=== PATIENT | female | born 1990 | race Caucasian/White ===

== ENCOUNTER 2017-01-06 08:42 | Emergency (ER) | payer OTHER ==
[~2017-01-06] VITALS: Ht 160 cm; Wt 72.6 kg
[~2017-01-06 08:42] MED LIST: ACHYD1T PO; DCS100C PO; DOCU100C37 PO; HYDR12.56 PO; HYDR1TAB PO; IBP800T PO; IBUP-1780 PO; OXYC-465 PO; PREN-115 PO
--- OUTSIDE RECORDS SUMMARY | 2017-01-06 08:48 | XMS REPORT | Continuity of Care Document ---
Author Author [facility] Organization [facility] Address Unknown Phone Unavailable Care Team Providers Care Bed Laster Name Role Phone AMY RAMIREZ MD PCP Insurance Providers Payer Name Policy Number Subscriber Name Relationship [employer] [id number] Lidia Del Angel 19 Mother Advance Directives Directive Response Recorded Date/Time Advance Directives No 12/13/14 1:35am Health Care Power of Mental Health Consultant No 12/13/14 1:35am Organ Donor Yes 12/13/14 1:35am Resuscitation Status Full Code 12/13/14 1:35am Problems Medical Problems Problem Onset Date Status Constipation in in first trimester Unknown Active Medications Medication Dose Route Sig Days/Qty Instructions Order Date Discontinued Date Status Acetaminophen/Hydrocodone Bitart 1 - 2 Each PO Q4HR PRN 20 Qty 12/02/12 Discontinued Hydrochlorothiazide 1 Each PO DAILY 12/02/12 06/05/14 Discontinued Vit #108/Iron/Fa 1 Each PO 12/02/12 Active Social History Social History Problem Response Recorded Date/Time Alcohol Use Denies Use 06/05/2014 7:22am Recreational Drug Use No 06/05/2014 7:22am Recent Foreign Travel No 12/13/2014 1:37am Smoking Status Never a Smoker 12/13/2014 1:36am Do you dip or chew tobacco? No 12/13/2014 1:36am Query Response Start Date Stop Date Smoking Status Never a Smoker Hospital Discharge Instructions No hospital discharge instructions. Plan of Care No plan of care. Functional Status No functional status results. Allergies, Adverse Reactions, Alerts Allergen Type Severity Reaction Status Last Updated No Known Drug Allergies Active 12/02/12 Immunizations Name Given Type Date of Influenza Vaccine 07/26/14 Historical Vital Signs Acute Vital Signs Vital Response Date/Time Temperature (Fahrenheit) 98.2 degrees F (97.6 - 99.5) Temperature (Calculated Celsius) 36.27437 degrees C (36.4 - 37.5) Temperature Source Tympanic Pulse Rate (adult) 74 bpm (60 - 90) Respiratory Rate 18 bpm (12 - 24) Blood Pressure 132/79 mm Hg Height (Feet) 5 feet Height (Inches) 3.00 inches Height (Calculated Centimeters) 160.140281 cm Weight (Pounds) 183 pounds Weight (Calculated Grams) 60588.405 gm Weight (Calculated Kilograms) 83.962428 kilograms Calculated BMI 32.41 Results Laboratory Results Test Name Result Units Flags Reference Collection Date/Time Result Date/ Time Comments Urine Protein < 6 MG/DL L 6-12 12/07/2014 12:37pm 12/07/2014 1:00pm Urine Creatinine 95 MG/DL 30-125 12/07/2014 12:37pm 12/07/2014 1:00pm Procedures No known history of procedures. Encounters Encounter Location Date/Time Departed Clinic Via [facility] 12/13/14 1:23am Registered Clinic Via [facility] 12/07/14 12:37pm
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
[2017-01-06] MEDS ORDERED: HYDR-3731 PO (10:14)
[2017-01-06 10:28] VITALS: BP 105/71
[2017-01-06] MEDS ORDERED: HYDROcodone/APAP 10 MG/325 MG (LORTAB) TAB PO ONE (10:30)
== END 2017-01-06 10:28 | disposition home or self-care (01) ==
LOC: EDUNIT# 08:42 → ER 08:44
DX: S32.511A Fracture of superior rim of right pubis, initial encounter for closed fracture (principal); Y04.8XXA Assault by other bodily force, initial encounter; Y99.8 Other external cause status
CPT/HCPCS: 73502; 73552; 99283

== ENCOUNTER 2020-06-15 05:35 | Outpatient (RCR) | payer OTHER ==
[~2020-06-15] VITALS: Ht 160 cm; Wt 80.5 kg
[~2020-06-15 05:35] MED LIST changes: +HYDR-3731 PO
== END 2020-06-15 08:37 | disposition home or self-care (01) ==
LOC: PREOP 05:35
PROVIDERS: ATTEND Obstetrics & Gynecology
DX: Z01.818 Encounter for other preprocedural examination (principal); Z20.828 Contact with and (suspected) exposure to other viral communicable diseases
CPT/HCPCS: 87635

== ENCOUNTER 2020-06-17 03:46 | Inpatient (IN) | payer BC, OTHER ==
[~2020-06-17] VITALS: Ht 160 cm; Wt 81.3 kg
[2020-06-17] VITALS (13 sets, daily range): BP systolic 89–126; BP diastolic 56–90
[2020-06-17] MEDS ORDERED: METOCLOPRAMIDE INJ 10 MG/2 ML (REGLAN) ONE (05:22)
[2020-06-17] MEDS ORDERED: CITRIC ACID/SOB CIT (BICITRA) 30 ML UDC ONE (05:23)
[2020-06-17] MEDS ORDERED: FAMOTIDINE 20MG/2ML IV (PEPCID) ONE (05:23)
[2020-06-17] MEDS ORDERED: ceFAZolin 2 GM IV Premixed 50 ML ONE (05:23)
[2020-06-17] MEDS ORDERED: metroNIDAZOLE 500MG/100ML IVPB 100 ML ONE (05:23)
[2020-06-17] MEDS ORDERED: LACTATED RINGERS 1,000 ML IV ONE (05:28)
--- NOTE | 2020-06-17 06:10 | NUR ---
JOSE JUAN BRONSON presented to unit via from ED, accompanied by SO, for Section. JOSE JUAN BRONSON weighed, gowned, voided, and to bed. EFHM and TOCO applied, VS taken. JOSE JUAN BRONSON oriented to bed controls, call light, TV, heat, and A/C controls.
--- OUTSIDE RECORDS SUMMARY | 2020-06-17 06:11 | XMS REPORT ---
Author Author Edilma Lane Doctor Organization [facility] Address Unknown Phone Unavailable Care Team Providers Care Hotel Dining Room Cashier Name Role Phone Migration, Doctor Unavailable Unavailable PROBLEMS Type Condition ICD9-CM Code CVI18-YK Code Onset Dates Condition S tatus SNOMED Code Problem Procreative counseling and advice using natural family planning V26.41 Active 618947625 Problem Routine general medical examination at [facility] V70.0 Active 497397650 Problem Palpitations 785.1 Active 6317703 2 Problem Unspecified tinnitus 388.30 Active 05422752 Problem Unspecified breast screening V76.10 A ctive 265317256 Problem Strep sore throat J02.0 Active 43 902636 Problem Screening for malignant neoplasm of the cervix V76.2 Active 399972757 Problem Threatened , unspecified as to episode of care 640 .00 Active 87924840 Problem Unspecified spontaneous without mention of complication 634.90 Active 42278105 Problem Acute sinusitis, unspecified 461.9 A ctive 84531918 Problem Essential hypertension, benign 401.1 Active 5064029 ALLERGIES No Information ENCOUNTERS Encounter Location Date Diagnosis [facility] [address] [facility] [id number] [address] [place] [id number] Dec, Viral URI J06.9 ; Cough R05 and Fever R50.9 [facility] [address] [facility] [id number] [address] [place] [address] Oct, Strep sore throat J02.0 [facility] [address] [facility] [id number] [address] [place] [address] Feb, [facility] [address] [facility] [id number] [address] [place] [address] Feb, [facility] [address] [facility] [id number] [address] [place] [phone] Dec, [facility] [address] [id number] [address] [place] [address], [place] [address] 05 Dec, 2013 [facility] [address] [id number] [address] [place] [address], [place] [address] 16 Nov, 2013 [facility] [address] [id number] [address] [place] [address], [place] [address] 13 Nov, 2013 [facility] [address] [id number] [address] [place] [address], [place] [address] Nov, [facility] [address] [id number] [address] [place] [address], [place] [address] Jun, [facility] [address] [id number] [address] [place] [address], [place] [address] 09 Dec, 2012 [facility] [address] [id number] [address] [place] [address], [place] [address] Nov, [facility] [address] [id number] [address] [place] [address], [place] [address] 18 Nov, 2012 [facility] [address] [id number] [address] [place] [address], [place] [address] 16 Nov, 2012 [facility] [address] [id number] [address] [place] [address], [place] [address] 14 Nov, 2012 [facility] [address] [id number] [address] [place] [address], [place] [address] Nov, [facility] [address] [id number] [address] [place] [address], [place] [address] Nov, [facility] [address] [id number] [address] [place] [address], [place] [address] Sep, [facility] [address] [id number] [address] [place] [address], [place] [address] Sep, [facility] [address] [id number] [address] [place] [address], [place] [address] Aug, [facility] [address] [id number] [address] [place] [address], [place] [address] Aug, [facility] [address] [id number] [address] [place] [phone] May, [facility] [address] [facility] [id number] [address] [place] [phone] May, [facility] [address] [id number] [address] [place] [address] Feb, [facility] [address] [facility] [id number] [address] [place] [phone] Feb, [facility] [address] [facility] [id number] [address] [place] [address] Feb, [facility] [address] [facility] [id number] [address] [place] [address] Jan, [facility] [address] [facility] [id number] [address] [place] [address] Dec, IMMUNIZATIONS No Known Immunizations SOCIAL HISTORY Never Assessed REASON FOR VISIT EMR-[facility] [place]AN OF CARE VITAL SIGNS MEDICATIONS Unknown Medications RESULTS No Results PROCEDURES No Known procedures INSTRUCTIONS MEDICATIONS ADMINISTERED No Known Medications MEDICAL (GENERAL) HISTORY Type Description Date Surgical History Section 11/2014 Hospitalization History Post C- Section 11/2014
--- OUTSIDE RECORDS SUMMARY | 2020-06-17 06:11 | XMS REPORT ---
Author Author Edilma MEJIA Organization [employer] Address Unknown Phone Unavailable Care Team Providers Care Loan Manager Name Role Phone VINAY MEJIA CP Unavailable Allergies, Adverse Reactions, Alerts Substance Reaction Event Type N.K.D.A. Info Not Available Non Drug Allergy Problems Problem Type Condition Code Onset Dates Condition Statu s Problem Palpitations 785.1 Active Problem Unspecified tinnitus 388.30 Active Problem Essential hypertension, benign 401.1 Active Assessment Strep sore throat J02.0 Active Problem Routine general medical examination at [facility] V70.0 Active Problem Acute sinusitis, unspecified 461.9 Active Problem Unspecified spontaneous without mention of complication 634.90 Active Problem Strep sore throat J02.0 Active Problem Screening for malignant neoplasm of the cervix V76.2 Active Problem Unspecified breast screening V76.10 Active Problem Threatened , unspecified as to episode of care 640.00 Active Problem Procreative counseling and advice using natural family planning V26.41 Active Medications No Known Medications Procedures Procedure Coding System Code Date BICILLIN LA/PENICILLIN G BENZATHINE CPT-4 J0561 Oct 26, 2015 THER/PROPH/DIAG INJ, SC/IM CPT-4 52520 Oct STREP A ASSAY W/OPTIC CPT-4 16825 Oct 26 15 Office Visit, Est Pt., Level 3 CPT-4 79561 D 2014 Vital Signs Date/Time: Oct 26, 2015 Temperature 98.4 F Weight 177.3 lbs Height 63 in BMI 31.40 Index Blood Pressure Diastolic 86 mmHg Blood Pressure Systolic 140 mmHg Cardiac Monitoring Heart Rate 100 bpm Results No Known Results Summary Purpose [employer] Submission
--- OUTSIDE RECORDS SUMMARY | 2020-06-17 06:11 | XMS REPORT ---
Author Author Edilma Gray Organization [facility] Address [address] [place] [address] Care Team Providers Care Crewman Main Battle Tank Name Role Phone BRAYAN Gray Unavailable PROBLEMS Type Condition ICD9-CM Code XON83-JN Code Onset Dates Condition S tatus SNOMED Code Problem Procreative counseling and advice using natural family planning V26.41 Active 972197139 Problem Routine general medical examination at [facility] V70.0 Active 575657583 Problem Palpitations 785.1 Active 4704211 2 Problem Unspecified tinnitus 388.30 Active 66064822 Problem Unspecified breast screening V76.10 A ctive 308306934 Problem Strep sore throat J02.0 Active 43 947231 Problem Screening for malignant neoplasm of the cervix V76.2 Active 134126958 Problem Threatened , unspecified as to episode of care 640 .00 Active 09540457 Problem Unspecified spontaneous without mention of complication 634.90 Active 71313436 Problem Acute sinusitis, unspecified 461.9 A ctive 53974032 Problem Essential hypertension, benign 401.1 Active 9260585 ALLERGIES No Information ENCOUNTERS Encounter Location Date Diagnosis [facility] [id number] [place] [address] Oct, Encounter for supervision of other alexandra l in first trimester Z34.81 [facility] [address] [id number] [place] [address] Oct, Encounter for supervision of other alexandra l in first trimester Z34.81 [facility] [address] [facility] [id number] [address] [place] [address] Dec, Viral URI J06.9 ; Cough R05 and Fever R50.9 [facility] [id number] [place] [address] Oct, Strep sore throat J02.0 [facility] [address] [id number] [place] [address] Feb, [facility] [address] [id number] [place] [address] Feb, [facility] [address] [id number] [place] [address] Dec, [facility] [address] [id number] [place] [address] Dec, [facility] [address] [id number] [place] [address] Nov, [facility] [address] [id number] [place] [address] Nov, [facility] [address] [id number] [place] [address] Nov, [facility] [address] [id number] [place] [address] Jun, [facility] [address] [id number] [place] [address] Dec, [facility] [address] [id number] [place] [address] Nov, [facility] [address] [id number] [place] [address] Nov, [facility] [id number] [place] [address] Nov, [facility] [address] [id number] [place] [address] 14 Nov, 2012 [facility] [id number] [place] [address] Nov, [facility] [address] [id number] [place] [address] Nov, [facility] [id number] [place] [address] Sep, [facility] [address] [id number] [place] [address] Sep, [facility] [address] [id number] [place] [address] Aug, [facility] [address] [id number] [place] [address] Aug, [facility] [address] [id number] [place] [address] May, [facility] [id number] [place] [address] May, [facility] [id number] [place] [address] Feb, [facility] [address] [id number] [place] [address] Feb, [facility] [address] [id number] [place] [address] Feb, [facility] [address] [id number] [place] [address] Jan, [facility] [address] [id number] [place] [address] Dec, IMMUNIZATIONS No Known Immunizations SOCIAL HISTORY Never Assessed REASON FOR VISIT PLAN OF CARE VITAL SIGNS Height 63 in 2013-12-07 Weight 162 lbs 2013-12-07 Temperature 96.4 degrees Fahrenheit 2013-12-07 Heart Rate 80 bpm 2013-12-07 Respiratory Rate 16 2013-12-07 Blood pressure systolic 120 mmHg 2013-12-07 Blood pressure diastolic 80 mmHg 2013-12-07 MEDICATIONS Unknown Medications RESULTS No Results PROCEDURES Procedure Date Ordered Result Body Site SCR PAP SMER;NEW PT OBTAIN PREP&CONVY-LAB Dec 07, 2013 CYTOPATH C/V AUTO FLUID REDO Dec 07, 2013 INSTRUCTIONS MEDICATIONS ADMINISTERED No Known Medications MEDICAL (GENERAL) HISTORY Type Description Date Surgical History Section 11/2014 Hospitalization History Post C- Section 11/2014
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
--- OUTSIDE RECORDS SUMMARY | 2020-06-17 06:11 | XMS REPORT ---
Author Author Edilma Gray Organization [facility] Address [address] [place] [address] Care Team Providers Care Fiscal Analyst Name Role Phone BRAYAN Gray Unavailable PROBLEMS Type Condition ICD9-CM Code FMD36-ME Code Onset Dates Condition S tatus SNOMED Code Problem Procreative counseling and advice using natural family planning V26.41 Active 807568121 Problem Routine general medical examination at [facility] V70.0 Active 765829984 Problem Palpitations 785.1 Active 7802591 2 Problem Unspecified tinnitus 388.30 Active 45990285 Problem Unspecified breast screening V76.10 A ctive 326440421 Problem Strep sore throat J02.0 Active 43 340697 Problem Screening for malignant neoplasm of the cervix V76.2 Active 943342177 Problem Threatened , unspecified as to episode of care 640 .00 Active 07190663 Problem Unspecified spontaneous without mention of complication 634.90 Active 52528950 Problem Acute sinusitis, unspecified 461.9 A ctive 59192979 Problem Essential hypertension, benign 401.1 Active 5308778 ALLERGIES No Information ENCOUNTERS Encounter Location Date Diagnosis [facility] [address] [facility] [id number] [address] [place] [phone] Oct, Encounter for supervision of other normal in first trimester Z34.81 [facility] [address] [facility] [id number] [address] [place] [phone] Oct, Encounter for supervision of other normal in first trimester Z34.81 [facility] [address] [facility] [id number] [address] [place] [phone] Dec, Viral URI J06.9 ; Cough R05 and Fever R50.9 [facility] [address] [facility] [id number] [address] [place] [phone] Oct, Strep sore throat J02.0 [facility] [address] [id number] [address] [place] [address], [place] [phone] Feb, [facility] [address] [id number] [address] [place] [phone] Feb, [facility] [address] [id number] [address] [place] [address], [place] [phone] Dec, [facility] [address] [id number] [address] [place] [phone] Dec, [facility] [address] [id number] [address] [place] [address], [place] [phone] Nov, [facility] [address] [id number] [address] [place] [address], [place] [phone] Nov, [facility] [address] [id number] [address] [place] [phone] Nov, [facility] [address] [id number] [address] [place] [address], [place] [address] Jun, [facility] [address] [id number] [address] [place] [address], [place] [phone] Dec, [facility] [address] [id number] [address] [place] [address], [place] [address] Nov, [facility] [address] [id number] [address] [place] [phone] Nov, [facility] [address] [id number] [address] [place] [phone] Nov, [facility] [address] [id number] [address] [place] [phone] Nov, [facility] [address] [id number] [address] [place] [phone] Nov, [facility] [address] [id number] [address] [place] [phone] Nov, [facility] [address] [id number] [address] [place] [phone] Sep, [facility] [address] [id number] [address] [place] [phone] Sep, [facility] [address] [id number] [address] [place] [phone] Aug, [facility] [address] [id number] [address] [place] [phone] Aug, [facility] [address] [id number] [address] [place] [phone] May, [facility] [address] [id number] [address] [place] [phone] May, [facility] [address] [id number] [address] [place] [phone] Feb, [facility] [address] [id number] [address] [place] [phone] Feb, [facility] [address] [id number] [address] [place] [phone] Feb, [facility] [address] [id number] [address] [place] [phone] Jan, [facility] [address] [id number] [address] [place] [phone] Dec, IMMUNIZATIONS No Known Immunizations SOCIAL HISTORY Never Assessed REASON FOR VISIT PLAN OF CARE VITAL SIGNS MEDICATIONS Unknown Medications RESULTS No Results PROCEDURES No Known procedures INSTRUCTIONS MEDICATIONS ADMINISTERED No Known Medications MEDICAL (GENERAL) HISTORY Type Description Date Surgical History Section 11/2014 Hospitalization History Post C- Section 11/2014
--- OUTSIDE RECORDS SUMMARY | 2020-06-17 06:11 | XMS REPORT ---
Author Author Edilma Lane Doctor Organization [facility] Address Unknown Phone Unavailable Care Team Providers Care Facer Operator Name Role Phone Migration, Doctor Unavailable Unavailable PROBLEMS Type Condition ICD9-CM Code SHO33-CO Code Onset Dates Condition S tatus SNOMED Code Problem Procreative counseling and advice using natural family planning V26.41 Active 188121746 Problem Routine general medical examination at [facility] V70.0 Active 850203497 Problem Palpitations 785.1 Active 8975109 2 Problem Unspecified tinnitus 388.30 Active 75550360 Problem Unspecified breast screening V76.10 A ctive 781652756 Problem Strep sore throat J02.0 Active 43 864539 Problem Screening for malignant neoplasm of the cervix V76.2 Active 895670075 Problem Threatened , unspecified as to episode of care 640 .00 Active 35156432 Problem Unspecified spontaneous without mention of complication 634.90 Active 51683549 Problem Acute sinusitis, unspecified 461.9 A ctive 13890877 Problem Essential hypertension, benign 401.1 Active 6792612 ALLERGIES No Information ENCOUNTERS Encounter Location Date Diagnosis [facility] [address] [facility] [id number] [address] [place] [address] Dec, Viral URI J06.9 ; Cough R05 and Fever R50.9 [facility] [address] [facility] [id number] [address] [place] [address] Oct, Strep sore throat J02.0 [facility] [address] [facility] [id number] [address] [place] [address] Feb, [facility] [address] [facility] [id number] [address] [place] [address] Feb, [facility] [address] [facility] [id number] [address] [place] [address] Dec, [facility] [address] [id number] [address] [place] [address], [place] [address] 05 Dec, 2013 [facility] [address] [id number] [address] [place] [address], [place] [address] 16 Nov, 2013 [facility] [address] [id number] [address] [place] [address], [place] [address] 13 Nov, 2013 [facility] [address] [id number] [address] [place] [address], [place] [address] Nov, [facility] [address] [id number] [address] [place] [address], [place] [address] Jun, [facility] [address] [id number] [address] [place] [address], [place] [address] 09 Dec, 2012 [facility] [address] [id number] [address] [place] [address], [place] [address] Nov, [facility] [address] [id number] [address] [place] [address], [place] [address] 18 Nov, 2012 [facility] [address] [id number] [address] [place] [address], [place] [address] 16 Nov, 2012 [facility] [address] [id number] [address] [place] [address], [place] [address] 14 Nov, 2012 [facility] [address] [id number] [address] [place] [address], [place] [address] Nov, [facility] [address] [id number] [address] [place] [address], [place] [address] Nov, [facility] [address] [id number] [address] [place] [address], [place] [address] Sep, [facility] [address] [id number] [address] [place] [address], [place] [address] Sep, [facility] [address] [id number] [address] [place] [address], [place] [address] Aug, [facility] [address] [id number] [address] [place] [address], [place] [address] Aug, [facility] [address] [id number] [address] [place] [address] May, [facility] [address] [id number] [address] [place] [address] May, [facility] [address] [id number] [address] [place] [address] Feb, [facility] [address] [id number] [address] [place] [address] Feb, [facility] [address] [id number] [address] [place] [address] Feb, [facility] [address] [id number] [address] [place] [address] Jan, [facility] [address] [facility] [id number] [address] [place] [address] Dec, IMMUNIZATIONS No Known Immunizations SOCIAL HISTORY Never Assessed REASON FOR VISIT [facility] PLAN OF CARE VITAL SIGNS MEDICATIONS Medication Instructions Dosage Frequency Start Date End Date Duration S tatus MethylPREDNISolone 4 mg by Oral route ev jordyn day for 6 days as directed per dose pack Jun, Active Augmentin 875-125 mg 1 tablet by Oral route 2 times pe r day for 10 day(s) Jun, Active RESULTS No Results PROCEDURES No Known procedures INSTRUCTIONS MEDICATIONS ADMINISTERED No Known Medications MEDICAL (GENERAL) HISTORY Type Description Date Surgical History Section 11/2014 Hospitalization History Post C- Section 11/2014
--- OUTSIDE RECORDS SUMMARY | 2020-06-17 06:11 | XMS REPORT ---
Author Author Edilma Lane Doctor Organization [facility] Address Unknown Phone Unavailable Care Team Providers Care Chief Cook Name Role Phone Migration, Doctor Unavailable Unavailable PROBLEMS Type Condition ICD9-CM Code RJM26-DO Code Onset Dates Condition S tatus SNOMED Code Problem Procreative counseling and advice using natural family planning V26.41 Active 676245061 Problem Routine general medical examination at [facility] V70.0 Active 281464192 Problem Palpitations 785.1 Active 7875048 2 Problem Unspecified tinnitus 388.30 Active 27713847 Problem Unspecified breast screening V76.10 A ctive 125784941 Problem Strep sore throat J02.0 Active 43 459238 Problem Screening for malignant neoplasm of the cervix V76.2 Active 263611827 Problem Threatened , unspecified as to episode of care 640 .00 Active 23853657 Problem Unspecified spontaneous without mention of complication 634.90 Active 89134532 Problem Acute sinusitis, unspecified 461.9 A ctive 50074196 Problem Essential hypertension, benign 401.1 Active 5238069 ALLERGIES No Information ENCOUNTERS Encounter Location Date Diagnosis [facility] [address] [place] [address] Oct, Encounter for supervision of other normal in first trimester Z34.81 [facility] [address] [id number] [address] [place] [address] Oct, Encounter for supervision of other normal in first trimester Z34.81 [facility] [address] [id number] [address] [place] [address] Dec, Viral URI J06.9 ; Cough R05 and Fever R50.9 [facility] [address] [id number] [address] [place] [address] Oct, Strep sore throat J02.0 [facility] [address] [id number] [address] [place] [address] 14 Feb, 2015 [facility] [address] [id number] [address] [place] [address], [place] [address] Feb, [facility] [address] [id number] [address] [place] [address], [place] [address] 05 Dec, 2013 [facility] [address] [id number] [address] [place] [address], [place] [address] Dec, [facility] [address] [id number] [address] [place] [address], [place] [address] 16 Nov, 2013 [facility] [address] [id number] [address] [place] [address], [place] [address] Nov, [facility] [address] [id number] [address] [place] [address], [place] [address] Nov, [facility] [address] [id number] [address] [place] [address], [place] [address] Jun, [facility] [address] [id number] [address] [place] [address], [place] [address] Dec, [facility] [address] [id number] [address] [place] [address], [place] [address] Nov, [facility] [address] [id number] [address] [place] [address], [place] [address] Nov, [facility] [address] [id number] [address] [place] [address], [place] [address] 16 Nov, 2012 [facility] [address] [id number] [address] [place] [address], [place] [address] 14 Nov, 2012 [facility] [address] [id number] [address] [place] [address], [place] [address] Nov, [facility] [address] [id number] [address] [place] [address], [place] [address] Nov, [facility] [address] [id number] [address] [place] [address], [place] [address] Sep, [facility] [address] [id number] [address] [place] [address] Sep, [facility] [address] [id number] [address] [place] [address] Aug, [facility] [address] [id number] [address] [place] [address] Aug, [facility] [address] [id number] [address] [place] [address] May, [facility] [address] [id number] [address] [place] [address] May, [facility] [address] [id number] [address] [place] [address] Feb, [facility] [address] [id number] [address] [place] [address] Feb, [facility] [address] [id number] [address] [place] [address] Feb, [facility] [address] [id number] [address] [place] [address] Jan, [facility] [address] [id number] [address] [place] [address] Dec, IMMUNIZATIONS No Known Immunizations SOCIAL HISTORY Never Assessed REASON FOR VISIT PLAN OF CARE VITAL SIGNS Height 63 in 2012-02-15 Weight 167 lbs 2012-02-15 Temperature 97.4 degrees Fahrenheit 2012-02-15 Heart Rate 100 bpm 2012-02-15 Respiratory Rate 18 2012-02-15 Blood pressure systolic 150 mmHg 2012-02-15 Blood pressure diastolic 90 mmHg 2012-02-15 MEDICATIONS Unknown Medications RESULTS No Results PROCEDURES No Known procedures INSTRUCTIONS MEDICATIONS ADMINISTERED No Known Medications MEDICAL (GENERAL) HISTORY Type Description Date Surgical History Section 11/2014 Hospitalization History Post C- Section 11/2014
--- OUTSIDE RECORDS SUMMARY | 2020-06-17 06:11 | XMS REPORT ---
Author Author Edilma Lane Doctor Organization [facility] Address Unknown Phone Unavailable Care Team Providers Care Creel Operator Name Role Phone Migration, Doctor Unavailable Unavailable PROBLEMS Type Condition ICD9-CM Code ITC06-VC Code Onset Dates Condition S tatus SNOMED Code Problem Procreative counseling and advice using natural family planning V26.41 Active 491199674 Problem Routine general medical examination at [facility] V70.0 Active 120283694 Problem Palpitations 785.1 Active 9484235 2 Problem Unspecified tinnitus 388.30 Active 76100690 Problem Unspecified breast screening V76.10 A ctive 417505107 Problem Strep sore throat J02.0 Active 43 886914 Problem Screening for malignant neoplasm of the cervix V76.2 Active 679403289 Problem Threatened , unspecified as to episode of care 640 .00 Active 49465061 Problem Unspecified spontaneous without mention of complication 634.90 Active 59447193 Problem Acute sinusitis, unspecified 461.9 A ctive 73942813 Problem Essential hypertension, benign 401.1 Active 2892654 ALLERGIES No Information ENCOUNTERS Encounter Location Date Diagnosis [facility] [address] [id number] [address] [place] [address] Oct, Encounter for supervision of other normal in first trimester Z34.81 [facility] [address] [id number] [address] [place] [address] Oct, Encounter for supervision of other normal in first trimester Z34.[address] [facility] [address] [id number] [address] [place] [address] Dec, Viral URI J06.9 ; Cough R05 and Fever R50.9 [facility] [address] [id number] [address] [place] [address] Oct, Strep sore throat J02.0 [facility] [address] [id number] [address] [place] [address] 14 Feb, 2015 [facility] [address] [id number] [address] [place] [address], [place] [address] Feb, [facility] [address] [id number] [address] [place] [address], [place] [address] 05 Dec, 2013 [facility] [address] [id number] [address] [place] [address], [place] [address] Dec, [facility] [address] [id number] [address] [place] [address], [place] [address] 16 Nov, 2013 [facility] [address] [id number] [address] [place] [address], [place] [address] Nov, [facility] [address] [id number] [address] [place] [address], [place] [address] Nov, [facility] [address] [id number] [address] [place] [address], [place] [address] Jun, [facility] [address] [id number] [address] [place] [address], [place] [address] Dec, [facility] [address] [id number] [address] [place] [address], [place] [address] Nov, [facility] [address] [id number] [address] [place] [address], [place] [address] Nov, [facility] [address] [id number] [address] [place] [address], [place] [address] 16 Nov, 2012 [facility] [address] [id number] [address] [place] [address], [place] [address] 14 Nov, 2012 [facility] [address] [id number] [address] [place] [address], [place] [address] Nov, [facility] [address] [id number] [address] [place] [address], [place] [address] Nov, [facility] [address] [id number] [address] [place] [address], [place] [address] Sep, [facility] [address] [id number] [address] [place] [address] Sep, [facility] [address] [id number] [address] [place] [address] Aug, [facility] [address] [id number] [address] [place] [address] Aug, [facility] [address] [id number] [address] [place] [address] May, [facility] [address] [id number] [address] [place] [address] May, [facility] [address] [id number] [address] [place] [address] Feb, [facility] [address] [id number] [address] [place] [address] Feb, [facility] [address] [id number] [address] [place] [address] Feb, [facility] [address] [id number] [address] [place] [address] Jan, [facility] [address] [id number] [address] [place] [address] Dec, IMMUNIZATIONS No Known Immunizations SOCIAL HISTORY Never Assessed REASON FOR VISIT PLAN OF CARE VITAL SIGNS MEDICATIONS Unknown Medications RESULTS No Results PROCEDURES No Known procedures INSTRUCTIONS MEDICATIONS ADMINISTERED No Known Medications MEDICAL (GENERAL) HISTORY Type Description Date Surgical History Section 11/2014 Hospitalization History Post C- Section 11/2014
--- OUTSIDE RECORDS SUMMARY | 2020-06-17 06:11 | XMS REPORT ---
Author Author Edilma Gray Organization [facility] Address [address] [place] [address] Care Team Providers Care Tool And Die Machinist Name Role Phone BRAYAN Gray Unavailable PROBLEMS Type Condition ICD9-CM Code UFJ13-PK Code Onset Dates Condition S tatus SNOMED Code Problem Procreative counseling and advice using natural family planning V26.41 Active 605869480 Problem Routine general medical examination at [facility] V70.0 Active 767300019 Problem Palpitations 785.1 Active 8061814 2 Problem Unspecified tinnitus 388.30 Active 70324361 Problem Unspecified breast screening V76.10 A ctive 741368957 Problem Strep sore throat J02.0 Active 43 440353 Problem Screening for malignant neoplasm of the cervix V76.2 Active 561321286 Problem Threatened , unspecified as to episode of care 640 .00 Active 03961831 Problem Unspecified spontaneous without mention of complication 634.90 Active 75751645 Problem Acute sinusitis, unspecified 461.9 A ctive 20129011 Problem Essential hypertension, benign 401.1 Active 3732368 ALLERGIES No Information ENCOUNTERS Encounter Location Date Diagnosis [facility] [address] [place] [id number] [place] [address] Oct, Encounter for supervision of other alexandra l in first trimester Z34.81 [facility] [address] [facility] [place] [address] Oct, Encounter for supervision of other alexandra l in first trimester Z34.81 [facility] [address] [facility] [id number] [address] [place] [address] Dec, Viral URI J06.9 ; Cough R05 and Fever R50.9 [facility] [address] [id number] [place] [address] Oct, Strep sore throat J02.0 [facility] [address] [facility] [place] [address] Feb, [facility] [address] [facility] [place] [address] Feb, [facility] [address] [facility] [place] [address] Dec, [facility] [address] [facility] [place] [address] Dec, [facility] [address] [facility] [place] [address] Nov, [facility] [address] [facility] [place] [address] Nov, [facility] [address] [id number] [place] [address] Nov, [facility] [address] [id number] [place] [address] Jun, [facility] [address] [id number] [place] [address] Dec, [facility] [address] [facility] [place] [address] Nov, [facility] [address] [id number] [place] [address] Nov, [facility] [address] [id number] [place] [address] Nov, [facility] [address] [id number] [place] [address] 14 Nov, 2012 [facility] [address] [id number] [place] [address] Nov, [facility] [address] [id number] [place] [address] Nov, [facility] [address] [id number] [place] [address] Sep, [facility] [address] [facility] [place] [address] Sep, [facility] [address] [facility] [place] [address] Aug, [facility] [address] [facility] [place] [address] Aug, [facility] [address] [id number] [place] [address] May, [facility] [address] [id number] [place] [address] May, [facility] [address] [id number] [place] [address] Feb, [facility] [address] [facility] [place] [address] Feb, [facility] [address] [facility] [place] [address] Feb, [facility] [address] [facility] [place] [address] Jan, [facility] [address] [facility] [place] [address] Dec, IMMUNIZATIONS No Known Immunizations SOCIAL HISTORY Never Assessed REASON FOR VISIT PLAN OF CARE VITAL SIGNS MEDICATIONS Unknown Medications RESULTS No Results PROCEDURES No Known procedures INSTRUCTIONS MEDICATIONS ADMINISTERED No Known Medications MEDICAL (GENERAL) HISTORY Type Description Date Surgical History Section 11/2014 Hospitalization History Post C- Section 11/2014
[2020-06-17] MEDS ORDERED: D5 LR IV SOLUTION 1,000 ML IV SCH ×2 (06:16)
[2020-06-17] MEDS ORDERED: OXYTOCIN PRE-MIX DRIP 500 ML IV SCH (06:16)
[2020-06-17] MEDS ORDERED: LACTATED RINGERS 1,000 ML IV SCH ×4 (06:16→06:18)
[2020-06-17] MEDS ORDERED: CITRIC ACID/SOB CIT (BICITRA) 30 ML UDC PO ONE ×2 (06:30)
[2020-06-17] MEDS ORDERED: FAMOTIDINE 20MG/2ML IV (PEPCID) IV ONE ×2 (06:30)
[2020-06-17] MEDS ORDERED: ceFAZolin 2 GM IV Premixed 50 ML IV ONE ×3 (06:30→07:00)
[2020-06-17] MEDS ORDERED: ONDANSETRON 4 MG/2 ML (SDV) Z0FRAN IVP PRN (06:30)
[2020-06-17] MEDS ORDERED: metroNIDAZOLE 500MG/100ML IVPB 100 ML IV ONE ×3 (06:30)
[2020-06-17] MEDS ORDERED: TETANUS,DIPTH,PERTUSS P/F (BOOSTRIX) 0.5 ML VIAL IM ONE (06:30)
[2020-06-17] MEDS ORDERED: MEASLES,MUMPS,RUBELLA 1 EA INJ SC ONE (06:30)
[2020-06-17] MEDS ORDERED: METOCLOPRAMIDE INJ 10 MG/2 ML (REGLAN) IV ONE ×2 (06:30)
[2020-06-17] MEDS ORDERED: fentaNYL INJECTION 100 MCG/2 ML AMP ONE (06:31)
[2020-06-17] MEDS ORDERED: POTASSIUM CL 10MEQ/50ML IVPB 0 ML IV ONE ×2 (06:32)
[2020-06-17] MEDS ORDERED: OXYTOCIN PRE-MIX DRIP 1,000 ML IV ONE (06:32)
[2020-06-17] MEDS ORDERED: BUPIVACAINE 0.25% 30 ML (SENSORCAINE) VIAL ONE (06:48)
[2020-06-17 06:59] LABS: BASOPHILS % (AUTO) 1 % (0-10); EOSINOPHILS # (AUTO) 0.2 10^3/uL (0.0-0.3); EOSINOPHILS % (AUTO) 2 % (0-10); HEMATOCRIT 32 % (35-52); HEMOGLOBIN 10.2 G/DL (11.5-16.0); LYMPHOCYTES # (AUTO) 2.1 X 10^3 (1.0-4.0); LYMPHOCYTES % (AUTO) 24 % (12-44); MEAN CORPUSCULAR HEMOGLOBIN 25 PG (25-34); MEAN CORPUSCULAR HGB CONC 32 G/DL (32-36); MEAN CORPUSCULAR VOLUME 76 FL (80-99); MEAN PLATELET VOLUME 10.5 FL (7.4-10.4); MONOCYTES # (AUTO) 0.8 X 10^3 (0.0-1.0); MONOCYTES % (AUTO) 9 % (0-12); NEUTROPHILS # (AUTO) 5.7 X 10^3 (1.8-7.8); NEUTROPHILS % (AUTO) 65 % (42-75); PLATELET COUNT 310 10^3/uL (130-400); RED CELL DISTRIBUTION WIDTH 14.3 % (10.0-14.5); WHITE BLOOD COUNT 8.8 10^3/uL (4.3-11.0)
[2020-06-17] MEDS ORDERED: KETAMINE/NaCl 50 MG/5 ML SYRINGE (ED ONLY) ONE (07:00)
[2020-06-17] MEDS ORDERED: BUPIVACAINE 0.5% 30 ML (SENSORCAINE) VIAL ONE (07:00)
[2020-06-17] MEDS ORDERED: ONDANSETRON 4 MG/2 ML (SDV) Z0FRAN ONE (07:02)
[2020-06-17] MEDS ORDERED: PHENYLEPHRINE 100 MCG/ML 10 ML (ANESTHESIA) SYR ONE (07:57)
--- NOTE | 2020-06-17 07:59 | HISTORY AND PHYSICAL ---
DATE OF SERVICE: CHIEF COMPLAINT: The patient is admitted for repeat delivery at 38 weeks gestation due to gestational diabetes. HISTORY OF PRESENT ILLNESS: The patient is a 29-year-old 4, para 2, A1, white female with an EDC of 06/30/2020, admitted on this date at 38+ weeks gestation for repeat . The patient's is complicated by gestational diabetes. The patient is a type A1 gestational diabetic. She has had no other problems with the . She denies ruptured membranes or bleeding. She is having some contractions. The patient's GBS culture was negative. ALLERGIES: None. MEDICATIONS: vitamins. Medical, surgical, social and surgical histories are per the antepartum record. PHYSICAL EXAMINATION: HEENT: Normal. NECK: Supple, with no lymphadenopathy and no thyromegaly. ABDOMEN: Gravid, soft, nontender and nondistended. EXTREMITIES: Show no clubbing or cyanosis. There is no Homans sign. PELVIC: Deferred. ASSESSMENT AND PLAN: A 38+ weeks gestation in a patient with two previous sections and gestational diabetes. The patient is admitted now for repeat delivery. Surgical risks, complication, recovery and followup have been discussed. The patient accepts those risks and is ready to proceed. Job ID: [id number] DocumentID: [id number] Dictated Date: 06/17/2020 07:16:54 Farrowing Worker Date: 06/17/2020 07:58:23 Dictated By: FLACO CHAUHAN MD
[2020-06-17] MEDS: KETOROLAC 30 MG/ML VIAL IVP SCH ×3 (08:25→21:31)
--- NOTE | 2020-06-17 08:47 | OPERATIVE REPORT ---
DATE OF SERVICE: 06/17/2020 PREOPERATIVE DIAGNOSIS: Term at 38 weeks gestation with previous and with gestational diabetes. POSTOPERATIVE DIAGNOSIS: Term at 38 weeks gestation with previous and with gestational diabetes. OPERATIVE PROCEDURE: Repeat low transverse delivery of a viable female infant with Apgars of 8 and 9 at 1 and 5 minutes respectively, weight of 6 pounds 10 ounces. Cord blood pH of 7.32 and a time of 07:39. OPERATIVE DESCRIPTION: With the patient in the supine position under satisfactory spinal anesthesia, she was repositioned in the dorsal lithotomy position and prepped and draped in the usual fashion for abdominal surgery. Cortes catheter was placed in the urinary bladder. A repeat Pfannenstiel incision was made through the skin by removing the patient's previous Pfannenstiel incisional scar. The abdomen was then entered in the usual manner. Bladder retractor placed into position and clean scalpel was used to make a 4 cm hysterotomy incision transversely across the lower uterine segment. That incision was extended bluntly. The membranes were intact and bulging through the incision. They were ruptured with an Allis clamp releasing copious clear fluid. Lafleur forceps were applied to facilitate the delivery of a vigorous viable female . Infant had Apgars and stats as noted above. The infant was bulb suctioned on delivery of the head and again on completion of delivery. Umbilical cord was doubly clamped and cut and the taken to the warmer by the nurse in attendance for delivery. Cord bloods were obtained. The placenta delivered spontaneously Powell. It was normal with a 3-vessel cord. The uterus was exteriorized and interior wiped clean with a wet laparotomy sponge. Uterine incision closed with a running locked suture of 2-0 Vicryl. Hemostasis was complete. The uterus was returned to the abdominal cavity. All blood clot and debris removed from the abdominal cavity. Sponge and needle counts were correct, hemostasis assured. The anterior parietal peritoneum was closed with running suture of 2-0 Vicryl. Rectus muscles were closed with sutures. The rectus fascia was closed with 2-0 Vicryl. The subcutaneous tissues were closed with 2-0 Vicryl and the skin was stapled. Sponge and needle counts were correct on completion of the procedure. Estimated blood loss was 400 mL. The patient tolerated the procedure well and was transferred to the recovery room in stable condition. The baby had remained in the bedside warmer. Job ID: [id number] DocumentID: [id number] Dictated Date: 06/17/2020 08:00:45 Lmft Date: 06/17/2020 08:46:27 Dictated By: FLACO CHAUHAN MD
[2020-06-17] MEDS ORDERED: DOCUSATE SODIUM 100 MG (COLACE) CAP PO SCH (09:00)
--- NOTE | 2020-06-17 09:10 | NUR ---
This RN caring for pt in recovery room. Recovery period ends at this time. is currently . RN will wait for to finish before transferring pt and infant to PP room 308. RN remains at bedside.
[2020-06-17] MEDS: DOCUSATE SODIUM 100 MG (COLACE) CAP PO SCH ×2 (09:59→21:31)
[2020-06-17] MEDS: oxyCODONE/APAP 10/325MG (PERCOCET 10) TABLET PO PRN ×2 (14:48→20:29)
--- NOTE | 2020-06-17 16:20 | NUR ---
report given to tracy emmanuel at this time
--- NOTE | 2020-06-17 19:00 | NUR ---
Fluids complete at this time, patient SL. No questions or concerns voiced at this time.
[2020-06-17] MEDS: IBUPROFEN 800 MG (MOTRIN) TAB PO SCH (19:35)
[2020-06-18 03:25] VITALS: BP 110/73
[2020-06-18] MEDS: KETOROLAC 30 MG/ML VIAL IVP SCH (03:26)
[2020-06-18] MEDS: oxyCODONE/APAP 10/325MG (PERCOCET 10) TABLET PO PRN ×3 (06:19→17:43)
[2020-06-18 08:13] VITALS: BP 113/74
[2020-06-18] MEDS: IBUPROFEN 800 MG (MOTRIN) TAB PO SCH ×3 (09:12→20:27)
[2020-06-18] MEDS: DOCUSATE SODIUM 100 MG (COLACE) CAP PO SCH ×2 (09:12→20:27)
--- NOTE | 2020-06-18 10:46 | Progress Note ---
Standard Progress Note Progress Notes/Assess & Plan Date Seen by a Provider: Jun 18, 2020 Time Seen by a Provider: 10:45 Progress/Assessment & Plan This patient is without complaint. She is ambulating, voiding, tolerating oral intake well and has good pain control. Vital Signs Date Time Temp Pulse Resp B/P (MAP) Pulse Ox O2 Delivery O2 Flow Rate FiO2 06/18/20 08:13 36.6 84 16 113/74 (87) 84 Room Air 06/18/20 03:25 36.4 80 16 110/73 (85) 98 Room Air 06/17/20 23:25 36.4 76 16 115/76 (89) 98 Room Air 06/17/20 20:25 36.5 89 16 126/82 (97) 98 Room Air 06/17/20 16:14 36.6 76 16 123/81 (95) 97 Room Air 06/17/20 12:22 36.5 80 16 97/56 (70) 98 Room Air I & O 06/18/20 07:00 Intake Total 5950 ml Output Total 4330 ml Balance 1620 ml Vital signs are stable. Patient is afebrile. The abdomen is benign. Fundus is firm below the umbilicus nontender. The surgical incision is clean dry and intact. Extremities show no clubbing cyanosis. There is no Homans sign. There is some pretibial pitting edema that is within normal limits. Assessment and plan postoperative day number 1 status post repeat delivery at 38 weeks gestation. Patient is doing well and will have routine convalescence care today and discharge home tomorrow Final Diagnosis 38 week repeat delivery FLACO CHAUHAN MD Jun 18, 2020 10:46
[2020-06-18] MEDS ORDERED: OXYC1TAB12 PO ×2 (10:48)
[2020-06-18] MEDS ORDERED: IBUP-1780 PO ×2 (10:48)
[2020-06-18] MEDS ORDERED: DCS100C PO ×2 (10:48)
--- NOTE | 2020-06-18 10:49 | Discharge Inst-Surgical ---
Discharge Inst-Surgical Depart Medication/Instructions New, Converted or Re-Newed RX: RX on Chart Consults/Follow Up Patient Instructions: As directed Orders & Referrals Follow Up Appt: RTC NEXT SATURDAY AT 9:30 AM FOR STAPLE REMOVAL am incision check. Call to make follow up appt. for patient in 4 weeks. Wound Care: Remove caty, apply benzoin and steri strips. Activity Per routine post instructions. Please call in RX to patient pharmacy. Diet as tolerated Patient may shower or tub bathe as desired. Continue home meds Activity Activity as Tolerated: No Diet Discharge Diet: No Restrictions FLACO CHAUHAN MD Jun 18, 2020 10:49
[2020-06-18 13:44] VITALS: BP 108/74
[2020-06-18 17:50] VITALS: BP 105/71
--- NOTE | 2020-06-18 20:33 | NUR ---
Pt resting in bed. assessment completed. pt denies any needs at this time. Will continue to monitor.
[2020-06-18 21:00] VITALS: BP 116/73
[2020-06-19] MEDS: oxyCODONE/APAP 10/325MG (PERCOCET 10) TABLET PO PRN ×2 (01:43→08:09)
[2020-06-19] MEDS: IBUPROFEN 800 MG (MOTRIN) TAB PO SCH ×2 (02:24→08:09)
[2020-06-19 02:27] VITALS: BP 113/74
[2020-06-19] MEDS: DOCUSATE SODIUM 100 MG (COLACE) CAP PO SCH (08:09)
--- NOTE | 2020-06-19 08:09 | NUR ---
Scheduled Colace and Motrin PO along with 1 Percocet PO given for patient's c/o pain rated 6/10. Fresh water provided.
[2020-06-19 08:22] VITALS: BP 115/66
--- NOTE | 2020-06-19 08:22 | NUR ---
AM shift assessment completed and vital signs obtained, see interventions. Plan of care reviewed with patient. Patient verbalizes understanding and questions answered.
--- NOTE | 2020-06-19 08:35 | NUR ---
[place] removed. Sprayzoin and steri-strips placed. Reviewed incisional care and signs/symptoms to report to the physician.
--- NOTE | 2020-06-19 10:36 | NUR ---
Discharge instructions and medications reviewed with patient both written and verbally. Patient verbalizes understanding and questions answered.
--- NOTE | 2020-06-19 10:50 | NUR ---
Patient discharged at this time via wheelchair and accompanied down to awaiting private vehicle by this RN. No signs or symptoms of distress noted.
--- NOTE | 2020-06-19 16:46 | Anesthesia-Regional Post-Op ---
Regional Patient Condition Mental Status: Alert, Oriented x3 Circulation: Same as Pre-Op Headache: Absent Sensation: Full Recovery Motor Block: Absent Post Op Complications Complications None Follow Up Care/Instructions Patient Instructions None needed. Anesthesia/Patient Condition Patient is doing well, no complaints, stable vital signs, no apparent adverse anesthesia problems. No complications reported per nursing. RACHAEL FAROOQ ENERGY AND CONSERVATION TECHNICIAN Jun 19, 2020 16:46
== END 2020-06-19 10:50 | disposition home or self-care (01) | DRG 788 ==
LOC: LDRP 06:03
PROVIDERS: ADMIT Obstetrics & Gynecology; ATTEND Obstetrics & Gynecology
PROC: 10D00Z1 Extraction of Products of Conception, Low, Open Approach (ICD-10-PCS; principal; 2020-06-17 07:15)
DX: O34.211 Maternal care for low transverse scar from previous cesarean delivery (principal); O24.420 Gestational diabetes mellitus in childbirth, diet controlled; Z3A.38 38 weeks gestation of pregnancy; Z37.0 Single live birth; Z23 Encounter for immunization
CPT/HCPCS: 36415; 85025; 86850; 86900; 86901; 90715

== ENCOUNTER 2020-12-03 04:15 | Emergency (ER) | payer BC ==
[~2020-12-03] VITALS: Ht 160 cm; Wt 80.0 kg
[~2020-12-03 04:15] MED LIST changes: -OXYC-465 PO; +OXYC-556 PO; +OXYC1TAB12 PO
--- NOTE | 2020-12-03 04:30 | NUR ---
Pt here with chest pain to the left chest that radiates up into her left shoulder and the base of her neck; pt states this pain woke her from sleep and has n/v associated with it. Pt denies any PMH. States she had approx 3-4 beers prior to bed last night. Pt appears very uncomfortable and rates her pain 8/10. ECG obtained. IV and labs obtained. ERP to room for eval.
[2020-12-03] MEDS ORDERED: FAMOTIDINE 20MG/2ML IV (PEPCID) IV STA (04:42)
[2020-12-03] MEDS ORDERED: ANTACID SUSP 30 ML UDC (MYLANTA) PO ONE (04:45)
[2020-12-03] MEDS ORDERED: LIDOCAINE 2% VISCOUS 15 ML UDC PO ONE (04:45)
[2020-12-03] MEDS ORDERED: NITROGLYCERIN 0.4 MG SL TABS BTL 25'S SL PRN (04:45)
[2020-12-03] MEDS ORDERED: ASPIRIN 81 MG CHEW (CHILDREN'S ASA) PO ONE (04:45)
--- NOTE | 2020-12-03 04:46 | ED Chest Pain ---
General Stated Complaint: CP,NECK,JAW & LEFT ARM PAIN Source: patient Exam Limitations: no limitations (STEFANIE MCCRAY) History of Present Illness Date Seen by Provider: Dec 03, 2020 Time Seen by Provider: 04:32 Initial Comments Patient presents ER by private conveyance with chief complaint that little less than an hour ago she was awoken from sleep with chest pain radiating up into her left jaw and left shoulder. She says it feels better when she sits up. She has some nausea and has been spitting up but no vomiting. He has a history of GERD on Pepcid. She has no personal or primary familial history of coronary disease. No lung disease no shortness of air or hemoptysis. No history of clots or swelling in her legs. She was diagnosed with Covid on November 16 and started having symptoms on the . She has not had symptoms for greater than 3 days. She is having no fever or chills. She does not smoke nor did she have a history of hypertension, hyperlipidemia or diabetes but she does have a history of gestational diabetes in the past. She has had no trauma or chest surgeries. History of section. (STEFANIE MCCRAY) Allergies and Home Medications Allergies Coded Allergies: No Known Drug Allergies (Unverified , 06/26/16) Home Medications Docusate Sodium 100 Mg Capsule, 100 MG PO BID Prescribed by: FLACO PONCE on 06/18/20 1048 Ibuprofen 800 Mg Tablet, 800 MG PO Q6HR Prescribed by: FLACO PONCE on 06/18/20 1048 Oxycodone HCl/Acetaminophen 1 Each Tablet, 1 TAB PO Q4HR PRN for PAINMODS Prescribed by: FLACO PONCE on 06/18/20 1048 Patient Home Medication List Home Medication List Reviewed: Yes (STEFANIE MCCRAY) Review of Systems Review of Systems Constitutional: No chills, No diaphoresis EENTM: No Blurred Vision, No Double Vision Respiratory: Denies Cough, Denies Shortness of Air Cardiovascular: Chest Pain; Denies Edema, Denies Lightheadedness Gastrointestinal: Denies Abdomen Distended, Denies Abdominal Pain, Denies Constipated, Denies Diarrhea; Nausea; Denies Vomiting Genitourinary: Denies Burning, Denies Discharge Musculoskeletal: No back pain, No joint pain (STEFANIE MCCRAY) All Other Systems Reviewed Negative Unless Noted: Yes (STEFANIE MCCRAY) Past Shkubbh-Vbooks-Hldekr Hx Patient Social History Alcohol Use: Occasionally Uses Alcohol Beverage of Choice: Beer Recreational Drug Use: No Smoking Status: Never a Smoker Recent Foreign Travel: No Contact w/Someone Who Travel: No Recent Hopitalizations: No (STEFANIE MCCRAY) Immunizations Up To Date Tetanus Booster (TDap): Unknown Date of Influenza Vaccine: Jul 26, 2014 (STEFANIE MCCRAY) Seasonal Allergies Seasonal Allergies: No (STEFANIE MCCRAY) Past Medical History Surgeries: Yes (SEVERAL SETS OF TUBES IN EARS, BILAT KNEE SCOPE, FX HAND, EAR DRUM RECONSTR) Respiratory: No Currently Using CPAP: No Currently Using BIPAP: No Cardiac: No Neurological: No Reproductive Disorders: No Female Reproductive Disorders: Menstrual Problems Sexually Transmitted Disease: No HIV/AIDS: No Genitourinary: No Gastrointestinal: Yes (WITH ) Gastroesophageal Reflux Musculoskeletal: No Endocrine: Yes (gest diabetes) HEENT: No Loss of Vision: Denies Hearing Impairment: Denies Cancer: No Psychosocial: No Integumentary: No Blood Disorders: Yes (ANEMIA) Adverse Reaction/Blood Tranf: No (N/A) (STEFANIE MCCRAY) Family Medical History Cardiovascular disease Grandparents (Maternal Grandmother) Cataracts Grandparents (Maternal Grandmother) Diabetes mellitus Grandparents (Maternal Grandmother) FH: hypothyroidism 19 MOTHER Hypercholesterolemia Grandparents (Maternal Grandmother) Hypertension 19 FATHER 19 MOTHER Grandparents (Maternal Grandmother) Kidney disease Grandparents (Maternal Grandmother) Myocardial infarction Grandparents (Maternal Grandmother) Thyroid disease No Family History of: AIDS Abdominal aortic aneurysm Lenoir's disease Alcoholism Alzheimer's disease Aphasia Arthritis Asthma Cancer of mouth Colon cancer Completed stroke Congenital disease Congenital heart disease Coronary thrombosis Cystic fibrosis Deafness or hearing loss Dementia Drug abuse Dysphasia Fibrocystic disease of breast Gastroenteritis Glaucoma Headache disorder Infertility Neoplasm Not obtainable due to adoption Osteoporosis Parkinson's disease Prostate cancer Psychosocial problem Respiratory disorder Seizure disorder Severe allergy Tuberculosis Visual disorder Physical Exam Vital Signs Vital Signs - First Documented 12/03/20 04:30 Temp 37.5 Pulse 106 Resp 22 B/P (MAP) 118/88 (98) Pulse Ox 100 O2 Delivery Room Air (LOPEZ DUNN MD) Vital Signs Capillary Refill : (STEFANIE MCCRAY) Height, Weight, BMI Height: 5'3" Weight: 160lbs. 0.0oz. 72.271800db; 31.75 BMI Method:Stated General Appearance: WD/WN, Anxious, Moderate Distress HEENT: PERRL/EOMI, Pharynx Normal, Moist Mucous Membranes Neck: Full Range of Motion, Normal Inspection Respiratory: Chest Non Tender, Lungs Clear, Normal Breath Sounds, No Accessory Muscle Use, No Respiratory Distress Cardiovascular: Regular Rate, Rhythm, No Edema, Normal Peripheral Pulses Gastrointestinal: Normal Bowel Sounds, No Organomegaly, Non Tender, Soft Extremity: Normal Capillary Refill, Normal Inspection, Normal Range of Motion, Non Tender, No Calf Tenderness, No Pedal Edema Neurologic/Psychiatric: Alert, Oriented x3 Skin: Normal Color, Warm/Dry (STEFANIE MCCRAY) Progress/Results/Core Measures Results/Orders Lab Results Laboratory Tests Test 12/03/20 04:40 12/03/20 06:27 Range/Units White Blood Count 8.8 4.3-11.0 10^3/uL Red Blood Count 4.71 3.80-5.11 10^6/uL Hemoglobin 13.0 11.5-16.0 g/dL Hematocrit 40 35-52 % Mean Corpuscular Volume 84 80-99 fL Mean Corpuscular Hemoglobin 28 25-34 pg Mean Corpuscular Hemoglobin Concent 33 32-36 g/dL Red Cell Distribution Width 14.0 10.0-14.5 % Platelet Count 257 130-400 10^3/uL Mean Platelet Volume 9.8 9.0-12.2 fL Immature Granulocyte % (Auto) 0 % Neutrophils (%) (Auto) 72 42-75 % Lymphocytes (%) (Auto) 18 12-44 % Monocytes (%) (Auto) 7 0-12 % Eosinophils (%) (Auto) 3 0-10 % Basophils (%) (Auto) 1 0-10 % Neutrophils # (Auto) 6.3 1.8-7.8 10^3/uL Lymphocytes # (Auto) 1.6 1.0-4.0 10^3/uL Monocytes # (Auto) 0.6 0.0-1.0 10^3/uL Eosinophils # (Auto) 0.3 0.0-0.3 10^3/uL Basophils # (Auto) 0.0 0.0-0.1 10^3/uL Immature Granulocyte # (Auto) 0.0 0.0-0.1 10^3/uL Prothrombin Time 12.4 12.2-14.7 SEC INR Comment 0.9 0.8-1.4 Activated Partial Thromboplast Time 26 24-35 SEC D-Dimer 0.36 0.00-0.49 UG/ML Sodium Level 144 135-145 MMOL/L Potassium Level 3.6 3.6-5.0 MMOL/L Chloride Level 108 H 98-107 MMOL/L Carbon Dioxide Level 21 21-32 MMOL/L Anion Gap 15 H 5-14 MMOL/L Blood Urea Nitrogen 10 7-18 MG/DL Creatinine 0.74 0.60-1.30 MG/DL Estimat Glomerular Filtration Rate > 60 BUN/Creatinine Ratio 14 Glucose Level 108 H 70-105 MG/DL Calcium Level 8.8 8.5-10.1 MG/DL Corrected Calcium 8.6 8.5-10.1 MG/DL Magnesium Level 1.9 1.6-2.4 MG/DL Total Bilirubin 0.3 0.1-1.0 MG/DL Aspartate Amino Transf (AST/SGOT) 18 5-34 U/L Alanine Aminotransferase (ALT/SGPT) 18 0-55 U/L Alkaline Phosphatase 66 40-136 U/L Myoglobin 15.2 10.0-92.0 NG/ML Troponin I < 0.028 < 0.028 <0.028 NG/ML Total Protein 7.6 6.4-8.2 GM/DL Albumin 4.3 3.2-4.5 GM/DL Lipase 48 8-78 U/L Serum Test, Qualitative NEGATIVE NEGATIVE (LOPEZ DUNN MD) Medications Given in ED Current Medications Medications Dose Ordered Sig/Shaina Route Start Time Stop Time Status Last Admin Dose Admin Acetaminophen 1,000 mg ONCE ONCE PO 12/03/20 05:30 12/03/20 05:31 DC 12/03/20 05:34 1,000 MG Al Hydrox/Mg Hydrox/Simethicone 30 ml ONCE ONCE PO 12/03/20 04:45 12/03/20 04:46 DC 12/03/20 04:58 30 ML Aspirin 324 mg ONCE ONCE PO 12/03/20 04:45 12/03/20 04:46 DC 12/03/20 04:52 324 MG Lactated Ringer's 1,000 ml @ 0 mls/hr Q0M ONCE IV 12/03/20 05:15 12/03/20 05:16 DC 12/03/20 05:15 1,000 MLS/HR Lidocaine HCl 15 ml ONCE ONCE PO 12/03/20 04:45 12/03/20 04:46 DC 12/03/20 04:58 15 ML Nitroglycerin 0.4 mg UD PRN SL 12/03/20 04:45 12/03/20 07:09 DC 12/03/20 04:50 0.4 MG Ondansetron HCl 8 mg ONCE ONCE IVP 12/03/20 05:00 12/03/20 05:01 DC 12/03/20 04:58 8 MG (LOPEZ DUNN MD) Vital Signs/I&O 12/03/20 12/03/20 12/03/20 04:30 05:00 07:09 Temp 37.5 Pulse 106 95 Resp 22 16 B/P (MAP) 118/88 (98) 115/74 Pulse Ox 100 98 O2 Delivery Room Air Room Air Room Air (LOPEZ DUNN MD) Progress Progress Note #1: Time: 04:48 Progress Note EKG shows some marginal anterior lead depression and maybe even some marginal half block depression in the inferior leads of uncertain significance. Plan to give her some aspirin and nitroglycerin to protect for heart or esophageal spasm. GI cocktail. Chest x-ray labs qualitative hCG. She is not having hemoptysis or evidence of a DVT but she did recently have Covid so we will get a D-dimer to see if we can rule out likelihood of a pulmonary embolism. She has mild tachycardia at 103 oxygen saturation 100% nonlabored on room air. We will also consider pericarditis/myocarditis. Progress Note #2: Time: 05:12 Progress Note Pain went from an 8 out of 10 down to 4 out of 10 with a single dose of nitroglycerin. GI cocktail brought her down to a 3 out of 10. Patient's nausea is improving. Blood pressure 106/73. Progress Note #3: Time: 05:35 Progress Note Patient states her pain is under better control but still there. She has an improved blood pressure 120/75. She would like some Tylenol for her headache. Plan to redraw troponin at 0630 for a 3-hour delta troponin. Initial troponin unremarkable. Chest x-ray unremarkable. Her symptoms are improved by sitting up and worsened by laying flat. If her second troponin is negative then pericarditis/myocarditis, CAD would be much less likely. D-dimer unremarkable making a clinically significant pulmonary embolus related to her recent Covid unlikely. Esophageal spasm is highest on the differential for now. (STEFANIE MCCRAY) Progress Note : Time: 07:05 Progress Note Repeat troponin was negative. I discussed acid reflux and gastritis as a possible cause for her symptoms and reviewed discharge instructions. Patient was feeling well at the time of discharge. She inquired about breast-feeding with medications she received today. She was advised breast-feeding is acceptable. (LOPEZ DUNN MD) Initial ECG Impression Date: Dec 03, 2020 Initial ECG Impression Time: 04:30 Initial ECG Rate: 103 Initial ECG Rhythm: S.Tach Initial ECG Intervals: Normal Initial ECG Impression: Normal, Nonspecific Changes Initial ECG Comparisson: No Previous ECG Available Comment Sinus tachycardia with some marginal one half block of ST depression in the anterior leads and inferior leads of uncertain significance. (STEFANIE MCCRAY) Diagnostic Imaging Diagonstic Imaging: Xray Plain Films/CT/US/NM/MRI: chest Comments No acute cardiopulmonary process noted on 1 view chest x-ray. Reviewed: Reviewed by Me (STEFANIE MCCRAY) Transfer of Care Time: 06:12 Care transferred to: Dr. Paul (STEFANIE MCCRAY) Departure Impression Primary Impression: Gastroesophagitis Additional Impressions: Diffuse esophageal spasm Atypical chest pain Disposition: 01 HOME, SELF-CARE Condition: Improved Departure-Patient Inst. Decision time for Depature: 07:03 (LOPEZ DUNN MD) Referrals: NO,LOCAL PHYSICIAN (PCP/Family) Primary Care Physician Patient Instructions: Chest Pain That Is Not Caused by the Heart (DC), Acid Reflux and Gastroesophageal Reflux Disease in Adults Add. Discharge Instructions: The exact cause of your pain is uncertain at this time but it may be related to gastritis and acid reflux. Take an antacid medication such as Pepcid (famotidine) 20 mg twice daily or Prilosec (omeprazole) 20 mg twice daily for the next 2 weeks. Avoid the following: Eating large meals, eating close to bedtime, caffeine, carbonation, citrus fruits and juices, tomato products, chocolate, alcohol, tobacco products, NSAID medications such as ibuprofen or naproxen, spicy foods, fatty or greasy foods, mints, or anything else you know irritate your stomach. Follow-up with your primary care provider in a week or 2. Call with questions or concerns. Return to the emergency room if you have worsening symptoms or other concerns. STEFANIE MCCRAY Dec 03, 2020 04:46 LOPEZ DUNN MD Dec 03, 2020 07:07
[2020-12-03 04:53] LABS: BASOPHILS % (AUTO) 1 % (0-10); EOSINOPHILS # (AUTO) 0.3 10^3/uL (0.0-0.3); EOSINOPHILS % (AUTO) 3 % (0-10); HEMATOCRIT 40 % (35-52); LYMPHOCYTES # (AUTO) 1.6 10^3/uL (1.0-4.0); LYMPHOCYTES % (AUTO) 18 % (12-44); MEAN CORPUSCULAR HEMOGLOBIN 28 pg (25-34); MEAN CORPUSCULAR HGB CONC 33 g/dL (32-36); MEAN CORPUSCULAR VOLUME 84 fL (80-99); MEAN PLATELET VOLUME 9.8 fL (9.0-12.2); MONOCYTES # (AUTO) 0.6 10^3/uL (0.0-1.0); MONOCYTES % (AUTO) 7 % (0-12); NEUTROPHILS # (AUTO) 6.3 10^3/uL (1.8-7.8); NEUTROPHILS % (AUTO) 72 % (42-75); PLATELET COUNT 257 10^3/uL (130-400); WHITE BLOOD COUNT 8.8 10^3/uL (4.3-11.0)
[2020-12-03] MEDS ORDERED: ONDANSETRON 4 MG/2 ML (SDV) Z0FRAN IVP ONE (05:00)
[2020-12-03 05:05] LABS: INR 0.9 (0.8-1.4); PROTHROMBIN TIME PATIENT 12.4 SEC (12.2-14.7)
[2020-12-03 05:06] LABS: ALBUMIN 4.3 GM/DL (3.2-4.5); CHLORIDE 108 MMOL/L (98-107); POTASSIUM 3.6 MMOL/L (3.6-5.0); SODIUM 144 MMOL/L (135-145)
[2020-12-03 05:07] LABS: CALCIUM 8.8 MG/DL (8.5-10.1)
[2020-12-03 05:08] LABS: GLUCOSE 108 MG/DL (70-105); TOTAL PROTEIN 7.6 GM/DL (6.4-8.2)
[2020-12-03 05:09] LABS: CARBON DIOXIDE 21 MMOL/L (21-32)
[2020-12-03 05:10] LABS: BILIRUBIN,TOTAL 0.3 MG/DL (0.1-1.0)
[2020-12-03 05:12] LABS: ALKALINE PHOSPHATASE 66 U/L (40-136); CREATININE SERUM 0.74 MG/DL (0.60-1.30); GFR ESTIMATED > 60
[2020-12-03 05:13] LABS: BUN/CREATININE RATIO 14
[2020-12-03 05:15] LABS: ALANINE AMINOTRANSFERASE 18 U/L (0-55); MAGNESIUM 1.9 MG/DL (1.6-2.4)
[2020-12-03] MEDS ORDERED: LACTATED RINGERS 1,000 ML IV ONE (05:15)
[2020-12-03 05:16] LABS: LIPASE 48 U/L (8-78)
[2020-12-03] MEDS ORDERED: ACETAMINOPHEN 500 MG TAB (TYLENOL) PO ONE (05:30)
--- NOTE | 2020-12-03 05:39 | NUR ---
Pt reports feeling better. Pain 10.
--- NOTE | 2020-12-03 06:26 | Diagnostic Imaging Report ---
PATIENT HISTORY: Chest pain. TECHNIQUE: Single frontal view of the chest. COMPARISON: None FINDINGS: The lung volumes are normal. No focal consolidation is seen. No large pleural effusion or pneumothorax is seen. The cardiomediastinal silhouette is normal in size and contour. No acute osseous abnormality is seen. IMPRESSION: No acute pulmonary abnormality seen. Dictated by: Dictated on workstation # [id number]
--- NOTE | 2020-12-03 06:45 | NUR ---
Pt reports she feels much better; pain in her neck has nearly resolved and her chest feels much better.
--- NOTE | 2020-12-03 06:59 | NUR ---
ASSUMED CARE OF PT. IN TALKING TO THE PT AT THIS TIME.
[2020-12-03 07:09] VITALS: BP 115/74
== END 2020-12-03 07:09 | disposition home or self-care (01) ==
LOC: EDUNIT# 04:15 → ER 04:19
DX: K29.70 Gastritis, unspecified, without bleeding (principal); K22.4 Dyskinesia of esophagus; R07.89 Other chest pain; Z82.49 Family history of ischemic heart disease and other diseases of the circulatory system; Z83.3 Family history of diabetes mellitus
CPT/HCPCS: 36415; 71045; 80053; 83690; 83735; 83874; 84484; 84703; 85025; 85379; 85610; 85730; 93005

== ENCOUNTER → 2022-10-24 | Outpatient (CLI) | payer BC ==
[~2022-10-24] MED LIST changes: +DOCU-239 PO
== END ==
LOC: CARD 09:30
PROVIDERS: ATTEND Pediatrics
DX: R00.2 Palpitations (principal)
CPT/HCPCS: 93242